=== PATIENT | female | born 1980 ===

== ENCOUNTER 2017-06-21 08:21 | Observation (INO) | payer MEDICAID, OTHER ==
[~2017-06-21 08:21] MED LIST: Buffered Lidocaine 0.9% SYRIN* 5 ML/SYR SYRINGE INTRADERM ONE; Sodium Citrate/Citric Acid* 15 ML UDC PO ONE
[2017-06-21] MEDS ORDERED: Sodium Citrate/Citric Acid* 15 ML UDC ONE (08:32)
[2017-06-21] MEDS ORDERED: ceFAZolin 2 GM PREMIX (*) 2 GM/50 ML BAG IVPB ONE (08:33)
[2017-06-21] MEDS ORDERED: Thrombin 5,000 UNITS* 1 APPLIC KIT - topical use - TOPICAL ONE (09:52)
[2017-06-21] MEDS ORDERED: Lidocaine 1% MPF wEPI 200,000* 30 ML SDV ONE (09:52)
[2017-06-21] MEDS ORDERED: Bacitracin IV* 50,000 UNITS INJ ONE (09:52)
[2017-06-21] MEDS ORDERED: Propofol* 10 MG/ML 20 ML BTL IV PUSH ONE (10:30)
[2017-06-21] MEDS ORDERED: Dexamethasone IV* 4 MG/ML 1 ML (4 MG) ONE (10:30)
[2017-06-21] MEDS ORDERED: Rocuronium* 10 MG/ML VIAL ONE (10:31)
[2017-06-21] MEDS ORDERED: Lidocaine 2% PF * 5 ML VIAL ONE (10:32)
[2017-06-21] MEDS ORDERED: Naloxone* 0.4 MG/ML 1 ML VIAL IV PRN (10:41)
[2017-06-21] MEDS ORDERED: Ondansetron INJ* 2 MG/ML VIAL IV PRN ×2 (10:41→13:55)
[2017-06-21] MEDS ORDERED: fentaNYL* 50 MCG/ML 2 ML VIAL (100 MCG VIAL) ONE ×2 (10:55→13:20)
[2017-06-21] MEDS ORDERED: Cisatracurium* 2 MG/ML MDV 5 ML ONE (12:13)
[2017-06-21] MEDS ORDERED: Neostigmine Methylsulfate* 1 MG/ML 10 ML VIAL (1 mg/ml) ONE (12:35)
[2017-06-21] MEDS ORDERED: Glycopyrrolate IV* 0.2 MG/ML 1 ML VIAL ONE (12:35)
[2017-06-21] MEDS: fentaNYL* 50 MCG/ML 2 ML VIAL (100 MCG VIAL) IV PRN ×2 (13:22→13:30)
[2017-06-21] MEDS ORDERED: Ondansetron INJ* 2 MG/ML VIAL ONE (13:51)
[2017-06-21] MEDS ORDERED: Magnesium Hydroxide LIQ* 30 ML UDC PO PRN (13:55)
[2017-06-21] MEDS ORDERED: Acetaminophen TAB* 325 MG PO PRN (13:55)
--- NOTE | 2017-06-21 14:41 | RAD ---
INDICATION: L5-S1 discectomy and possible laminectomy. COMPARISON: No relevant prior exams available on the [facility] [place] PACS for comparison. TECHNIQUE: 17.2 seconds fluoroscopy. FINDINGS: Spot images document instruments at the L5-S1 posterior elements and disc level. IMPRESSION: Procedural fluoroscopy. CPT II Codes: G9500
[2017-06-21] MEDS: HYDROcodone/ACETAMIN 5-325 MG* 1 TAB PO PRN ×2 (16:21→21:04)
[2017-06-22] MEDS: HYDROcodone/ACETAMIN 5-325 MG* 1 TAB PO PRN ×2 (02:15→07:17)
--- NOTE | 2017-06-22 05:08 | OP ---
OPERATIVE REPORT: DATE OF OPERATION: 06/21/17 DATE OF : 78 SURGEON: rAi Berger MD CLOTH SECONDS SORTER: DUC Miles The case was done with assistance of surgical PA because of the complexity of the case. ANESTHESIA: General. PRE-OP DIAGNOSIS: Degenerative disk disease right L5-S1 with herniated nucleus pulposus. POST-OP DIAGNOSIS: Degenerative disk disease right L5-S1 with herniated nucleus pulposus. OPERATIVE PROCEDURE: The patient underwent right L5-S1 MIS diskectomy with an extended right S1 fora minotomy. ESTIMATED BLOOD LOSS: 20 mL. COMPLICATIONS: None. SUMMARY: The patient is a very pleasant 37-year-old female with complaints of back pain radiating to the right lower extremity. The patient had right lower extremity weakness with loss of sensation. MRI revealed a large right L5-S1 herniated nucleus pulposus. After failing conservative treatment mo dalities, she was offered the option of surgical intervention for a right L5-S1 diskectomy. After ex plaining expectations, limitations, and possible complications of the procedure with complications in cluding, but not limited to bleeding, infection, risk of injury to adjacent structures, coma, paralys is, , anesthesia risk, stroke, blindness, cancer, instability, need for additional procedure. T he patient and her understood and would like to proceed with surgery. An informed consent wa s obtained. The patient and her understood that her condition may not improve and in fact ma y get worse after surgery and she may have to have additional procedure in the future. They also und erstood that operative plan may be modified according to intraoperative findings and conditions. DESCRIPTION OF PROCEDURE: The patient was brought to the operating room and was placed under general anesthesia by the anesthesia team. She was carefully positioned prone on the Qasim frame and Jacks on table, and all bony prominences were meticulously padded. Her skin was prepped and draped in the standard fashion and after appropriate surgical pause and the patient identification, a small right p aramedian incision over the L5-S1 disk space was marked on the skin with the assistance of intraopera tive fluoroscopic imaging. The incision site was was infiltrated with local anesthetic. A #10 surgi gwendolyn blade was used to incise the skin. The incision was carried down to the dorsal fascia with #10 s urgical blade and over a series of dilators, a METRx retractor system was introduced into the field. Intraoperative microscope was brought into the field and after removing the remaining of paraspinal musculature, the lamina of L5 on the right was exposed. The right L5-S1 hemilaminectomy was performed with use of high-speed drill and Kerrison punches with a very small medial facetectomy. After remov ing of the ligamentum flavum, the dura was found to be under significant pressure from the underlying herniated disk. The foraminotomy at the right S1 was performed and the thecal sac was gently retrac mio medially with very minimal displacement, and actually two extruded disk fragments were identified , and they were gently removed with pituitary rongeurs. and the annulus fibrosus was incised with a #11 surgical blade. The diskectomy was performed with pituitary rongeurs to rule out disk fra gments were initially retrieved as well as multiple loose disk fragments. The disk was found to be ex tremely degenerated. After this part of the diskectomy and copious irrigation of the disk space, the thecal sac and the nerve root was found to be free of any pressure phenomenon. After confirmation o f meticulous hemostasis and copious irrigation and after confirmation of the appropriate surgical lev el with intraoperative intraoperative fluoroscopic imaging, the tubular retractor was gently removed and the wound was closed by layers with 0 interrupted Vicryl suture for the dorsal fascia and 2-0 int errupted Vicryl sutures for the subcutaneous tissues. The skin was covered with Dermabond. At the e nd of the procedure, all counts were reported to be correct. The patient was gently turned supine, w as extubated and was transferred to Recovery in excellent condition. She remained hemodynamically st able throughout the case. The case was done with the assistance of surgical DUC because of the comple xity of the case. [id number]/[facility] #: [id number]
--- NOTE | 2017-06-22 07:23 | PN ---
Progress Note - Progress Note Date of Service: 06/22/17 SOAP: Subjective: []No events ON. Tolerates po well, Ambulates, Voids. Preop rt LE pain resolved. Wants to go home. Objective: []VSS, wound s,c,d AAOx3, EMMA, CN II -XII grossly inact Motor 5/5 Sensory grossly intact to light touch except preop Rt foot which in improved. Assessment: []37 yof POD#1 Rt L5-S1 MIS discectomy Plan: []Monitor VS, Neurochecks Encourage ambulation DC today Full instructions given to patient. Igor Berger MD
[2017-06-22 08:51] VITALS: BP 106/59
--- NOTE | 2017-07-03 10:49 | DS ---
DISCHARGE SUMMARY: DATE OF ADMISSION: 06/21/17 DATE OF DISCHARGE: 06/22/17 PROCEDURE: The patient underwent a right L5-S1 MIS diskectomy with right foraminotomy. SUMMARY: The patient is a very pleasant 37-year-old female with complaints of back pain radiating to the right lower extremity with weakness and loss of sensation. MRI revealed a large right L5-S1 karolina iated nucleus pulposus. After failing conservative treatment modalities, she was offered the option of surgical intervention for the above procedure. The patient underwent the above procedure. She lakeshia erated the procedure well and she was transferred to regular floor. On postop day 1, the patient did extremely well. She was able to tolerate p.o. well. She was ambulating. She was voiding and her pr eoperative right lower extremity pain has resolved. The patient was found to be ready to be discharg ed home. She was discharged home with full instructions and p.o. pain medication. [id number]/[facility] #: [id number]
== END 2017-06-22 09:30 | disposition home or self-care (01) | DRG 310 ==
LOC: OR 08:21 → EDSTATUS 09:45 → INTOOBSV 11:33 → SSU 11:33
PROVIDERS: ADMIT Neurological Surgery; ATTEND Neurological Surgery
DX: M51.17 Intervertebral disc disorders with radiculopathy, lumbosacral region (principal); F41.9 Anxiety disorder, unspecified; D64.9 Anemia, unspecified; F17.210 Nicotine dependence, cigarettes, uncomplicated; M47.27 Other spondylosis with radiculopathy, lumbosacral region; Z88.8 Allergy status to other drugs, medicaments and biological substances; Z90.89 Acquired absence of other organs; Z83.3 Family history of diabetes mellitus; M51.37 Other intervertebral disc degeneration, lumbosacral region
CPT/HCPCS: 76001; 81025; 96374; A9270-GY; G0378; J0690; J1100; J2001; J2405; J2704; J2710; J3010